=== PATIENT | male | born 1965 | race Two or more races ===

== ENCOUNTER 2022-04-30 17:54 | Emergency (ER) | payer MEDICAID, OTHER ==
[~2022-04-30] VITALS: Ht 180.3 cm; Wt 210.0 kg
[2022-04-30 18:13] VITALS: BP 95/72
[2022-04-30 19:58] LABS: Albumin 3.2 g/dL (3.4-5.0); Calcium 8.5 mg/dL (8.5-10.1); Potassium 4.7 mmol/L (3.5-5.1)
[2022-04-30 20:01] LABS: BUN/Creatinine Ratio 24.4; Bilirubin, Total 1.1 mg/dL (0.2-1.0); Total Protein 6.4 g/dL (6.4-8.2)
[2022-04-30 20:03] LABS: Basophils # (auto) 0.1 10 ^3/uL (0-0.2); Basophils % (auto) 0.7 % (0.0-2.0); Eosinophils # (auto) 0.2 10 ^3/uL (0-0.8); Hemoglobin 16.9 g/dL (13.5-17.5); Mean Corpuscular Hemoglobin 27.1 pg (28.0-32.0); Monocytes # (auto) 1.1 10 ^3/uL (0-1.3); Red Cell Distribution Width 15.2 % (11.8-14.3)
[2022-04-30 20:04] LABS: Eosinophils % (auto) 1.9 % (0.0-7.0); Hematocrit 52.7 % (41.0-53.0); Lymphocytes # (auto) 2.5 10 ^3/uL (0.4-5.4); Lymphocytes % (auto) 22.3 % (10.0-50.0); Mean Corpuscular Volume 84.7 fL (80.0-100.0); Monocytes % (auto) 9.9 % (0.0-12.0); Neutrophils # (auto) 7.3 10 ^3/uL (1.6-8.6); Neutrophils % (auto) 65.2 % (37.0-80.0); Nucleated Red Blood Cells % 0.1 %; Red Blood Cells 6.22 10^6/uL (4.5-5.90); White Blood Cell 11.2 10^3/uL (4.4-10.8)
== END 2022-05-01 00:14 | disposition home or self-care (01) ==
LOC: ER 17:54
DX: I11.0 Hypertensive heart disease with heart failure (principal); I50.9 Heart failure, unspecified; F15.10 Other stimulant abuse, uncomplicated
CPT/HCPCS: 36415; 71045; 80053; 83880; 84484; 85025; 93005

== ENCOUNTER 2022-05-02 10:07 | Emergency (ER) | payer MEDICAID ==
[~2022-05-02] VITALS: Ht 172.7 cm; Wt 87.2 kg
[2022-05-02 10:15] VITALS: BP 125/96
[2022-05-02 11:19] LABS: Basophils # (auto) 0.1 10 ^3/uL (0-0.2); Mean Corpuscular Hemoglobin 27.5 pg (28.0-32.0)
[2022-05-02 11:23] LABS: Eosinophils # (auto) 0.2 10 ^3/uL (0-0.8); Eosinophils % (auto) 1.7 % (0.0-7.0); Hematocrit 53.3 % (41.0-53.0); Hemoglobin 17.1 g/dL (13.5-17.5); Lymphocytes % (auto) 20.4 % (10.0-50.0); Mean Corpuscular Hgb Conc. 32.2 g/dL (32.0-36.0); Mean Corpuscular Volume 85.5 fL (80.0-100.0); Monocytes # (auto) 0.9 10 ^3/uL (0-1.3); Monocytes % (auto) 9.3 % (0.0-12.0); Neutrophils # (auto) 6.7 10 ^3/uL (1.6-8.6); Neutrophils % (auto) 67.6 % (37.0-80.0); Nucleated Red Blood Cells % 0.1 %; Red Blood Cells 6.23 10^6/uL (4.5-5.90); Red Cell Distribution Width 15.5 % (11.8-14.3); White Blood Cell 9.8 10^3/uL (4.4-10.8)
[2022-05-02 11:33] LABS: Albumin 3.2 g/dL (3.4-5.0); Calcium 9.1 mg/dL (8.5-10.1); Potassium 4.8 mmol/L (3.5-5.1)
[2022-05-02 11:36] LABS: BUN/Creatinine Ratio 25.5; Total Protein 6.6 g/dL (6.4-8.2)
[2022-05-02] MEDS ORDERED: FUROSEMIDE 40 MG/4 ML VIAL IV ONE (12:45)
== END 2022-05-02 20:43 | disposition left against medical advice (07) ==
LOC: EDBD 10:07 → ER 10:07
DX: I11.0 Hypertensive heart disease with heart failure (principal); I50.9 Heart failure, unspecified; F12.10 Cannabis abuse, uncomplicated; F15.10 Other stimulant abuse, uncomplicated; E78.5 Hyperlipidemia, unspecified
CPT/HCPCS: 36415; 71045; 80053; 83880; 84484; 85025; 93005

== ENCOUNTER 2022-06-01 19:33 | Inpatient (IN) | payer MEDICAID ==
[~2022-06-01] VITALS: Ht 180.3 cm; Wt 95.6 kg
[2022-06-01 20:26] LABS: Basophils # (auto) 0.1 10 ^3/uL (0-0.2); Basophils % (auto) 0.8 % (0.0-2.0); Eosinophils # (auto) 0.1 10 ^3/uL (0-0.8); Eosinophils % (auto) 1.3 % (0.0-7.0); Hematocrit 46.8 % (41.0-53.0); Hemoglobin 15.7 g/dL (13.5-17.5); Lymphocytes % (auto) 20.6 % (10.0-50.0); Mean Corpuscular Hemoglobin 28.3 pg (28.0-32.0); Mean Corpuscular Hgb Conc. 33.5 g/dL (32.0-36.0); Mean Corpuscular Volume 84.6 fL (80.0-100.0); Monocytes # (auto) 1.1 10 ^3/uL (0-1.3); Monocytes % (auto) 11.4 % (0.0-12.0); Neutrophils # (auto) 6.5 10 ^3/uL (1.6-8.6); Neutrophils % (auto) 65.9 % (37.0-80.0); Nucleated Red Blood Cells % 0.1 %; Red Blood Cells 5.54 10^6/uL (4.5-5.90); White Blood Cell 9.9 10^3/uL (4.4-10.8)
[2022-06-01 20:42] LABS: Albumin 3.1 g/dL (3.4-5.0); Calcium 8.5 mg/dL (8.5-10.1); Potassium 4.3 mmol/L (3.5-5.1)
[2022-06-01 20:45] LABS: BUN/Creatinine Ratio 26.1; Bilirubin, Total 1.8 mg/dL (0.2-1.0); Total Protein 6.3 g/dL (6.4-8.2)
[2022-06-01] MEDS ORDERED: FUROSEMIDE 100 MG/10ML VIAL IV ONE (20:45)
[2022-06-01 23:22] LABS: Alcohol, Urine < 3.0 mg/dL (0-10); Cannabinoid Screen, Urine POSITIVE (NEGATIVE)
[2022-06-01 23:30] LABS: Amphetamine Screen, Urine POSITIVE (NEGATIVE); Barbiturate Scree,Urine NEGATIVE (NEGATIVE); Benzodiazephine Screen, Urine NEGATIVE (NEGATIVE); Cocaine Screen, Urine NEGATIVE (NEGATIVE); Opiate Scree,Urine NEGATIVE (NEGATIVE); Phencyclidine Screen, Urine NEGATIVE (NEGATIVE)
[2022-06-02] MEDS ORDERED: DOCUSATE SOD 100 MG CAP PO PRN (02:30)
[2022-06-02] MEDS ORDERED: MORPHINE SULFATE INJ 2 MG/ml SYRG IV PRN ×2 (02:30→03:00)
[2022-06-02] MEDS ORDERED: IBUPROFEN 600 MG TAB PO PRN (02:30)
[2022-06-02] MEDS ORDERED: HYDROcodone-ACET 5/325MG TAB PO PRN (02:30)
[2022-06-02] MEDS ORDERED: NITROGLYCERIN 0.4 MG SL TAB SL PRN (03:00)
[2022-06-02 03:25] LABS: BUN/Creatinine Ratio 27.2; Calcium 8.3 mg/dL (8.5-10.1); Magnesium 1.8 mg/dL (1.6-2.6); Potassium 3.3 mmol/L (3.5-5.1)
[2022-06-02 03:26] LABS: Bilirubin, Total 2.5 mg/dL (0.2-1.0); Total Protein 6.4 g/dL (6.4-8.2)
[2022-06-02 03:29] LABS: Basophils # (auto) 0.2 10 ^3/uL (0-0.2); Eosinophils # (auto) 0.2 10 ^3/uL (0-0.8); Eosinophils % (auto) 2.1 % (0.0-7.0); Hematocrit 49.4 % (41.0-53.0); Lymphocytes # (auto) 1.8 10 ^3/uL (0.4-5.4); Lymphocytes % (auto) 18.9 % (10.0-50.0); Mean Corpuscular Hemoglobin 26.9 pg (28.0-32.0); Mean Corpuscular Hgb Conc. 32.3 g/dL (32.0-36.0); Mean Corpuscular Volume 83.3 fL (80.0-100.0); Monocytes # (auto) 1.2 10 ^3/uL (0-1.3); Monocytes % (auto) 12.5 % (0.0-12.0); Neutrophils # (auto) 6.1 10 ^3/uL (1.6-8.6); Neutrophils % (auto) 64.5 % (37.0-80.0); Nucleated Red Blood Cells % 0.1 %; Red Blood Cells 5.93 10^6/uL (4.5-5.90); Red Cell Distribution Width 14.7 % (11.8-14.3); White Blood Cell 9.5 10^3/uL (4.4-10.8)
[2022-06-02] MEDS: SODIUM CHLOR 0.9% PF (SALINE LOCK) 10ML VIAL/SYR IV SCH ×3 (06:03→22:00)
[2022-06-02] MEDS ORDERED: FUROSEMIDE 40 MG/4 ML VIAL IV SCH (10:00)
[2022-06-02] MEDS: CARVEDILOL 12.5 MG TAB PO SCH ×3 (10:00→22:23)
[2022-06-02] MEDS: FAMOTIDINE (10MG/ML) 2ML VL IV SCH (11:59)
[2022-06-02 15:19] LABS: Magnesium 2.1 mg/dL (1.6-2.6); Phosphorus 3.7 mg/dL (2.5-4.90)
[2022-06-02] MEDS ORDERED: IOHEXOL 350 MG/ML 100ML IJ ONE (15:57)
[2022-06-02] MEDS ORDERED: ENOXAPARIN SOD 100 MG/1 ML SYRINGE SC ONE (17:15)
[2022-06-02] MEDS ORDERED: AMIODARONE HCL 150 MG in D5W 5% 100 ML IV ONE (17:15)
[2022-06-02] MEDS ORDERED: POTASSIUM CHL 20 Meq TABLET PO ONE (17:15)
[2022-06-02] MEDS ORDERED: AMIODARONE 450mg/250ml AE 250 ML IV SCH ×2 (17:30→23:30)
[2022-06-02] MEDS: MILRINONE 20MG/100ML 100 ML IV SCH (17:51)
[2022-06-02 20:54] LABS: Basophils # (auto) 0.1 10 ^3/uL (0-0.2); Basophils % (auto) 0.9 % (0.0-2.0); Eosinophils # (auto) 0.1 10 ^3/uL (0-0.8); Eosinophils % (auto) 0.5 % (0.0-7.0); Hematocrit 50.2 % (41.0-53.0); Hemoglobin 16.1 g/dL (13.5-17.5); Lymphocytes # (auto) 1.6 10 ^3/uL (0.4-5.4); Lymphocytes % (auto) 13.5 % (10.0-50.0); Mean Corpuscular Hemoglobin 27.3 pg (28.0-32.0); Mean Corpuscular Hgb Conc. 32.2 g/dL (32.0-36.0); Mean Corpuscular Volume 84.8 fL (80.0-100.0); Monocytes % (auto) 8.6 % (0.0-12.0); Neutrophils # (auto) 8.9 10 ^3/uL (1.6-8.6); Neutrophils % (auto) 76.5 % (37.0-80.0); Nucleated Red Blood Cells % 0.2 %; Red Blood Cells 5.92 10^6/uL (4.5-5.90); Red Cell Distribution Width 14.9 % (11.8-14.3); White Blood Cell 11.7 10^3/uL (4.4-10.8)
[2022-06-02 21:18] LABS: Albumin 2.9 g/dL (3.4-5.0); Calcium 8.5 mg/dL (8.5-10.1); Potassium 4.3 mmol/L (3.5-5.1)
[2022-06-02 21:21] LABS: Bilirubin, Total 3.8 mg/dL (0.2-1.0); Total Protein 6.3 g/dL (6.4-8.2)
[2022-06-02] MEDS: FUROSEMIDE 20 MG/2 ML VIAL IV SCH (21:36)
[2022-06-02] MEDS: SACUBITRIL-VALSARTAN 24mg/26mg TAB PO SCH (22:23)
[2022-06-02] MEDS: ENOXAPARIN SOD 100 MG/1 ML SYRINGE SC SCH (22:24)
[2022-06-02 22:43] VITALS: BP 120/77
[2022-06-03] VITALS (7 sets, daily range): BP systolic 87–108; BP diastolic 59–73
[2022-06-03] MEDS: ONDANSETRON HCL 4 MG/2 ML VIAL IV PRN (01:18)
[2022-06-03] MEDS: MILRINONE 20MG/100ML 100 ML IV SCH ×3 (03:07→20:48)
[2022-06-03] MEDS: AMIODARONE 450mg/250ml AE 250 ML IV SCH ×2 (03:35→18:57)
[2022-06-03] MEDS: FUROSEMIDE 20 MG/2 ML VIAL IV SCH ×2 (06:00→17:21)
[2022-06-03] MEDS: SODIUM CHLOR 0.9% PF (SALINE LOCK) 10ML VIAL/SYR IV SCH ×3 (06:05→22:29)
[2022-06-03 06:30] LABS: Basophils # (auto) 0.1 10 ^3/uL (0-0.2); Basophils % (auto) 0.5 % (0.0-2.0); Eosinophils # (auto) 0 10 ^3/uL (0-0.8); Eosinophils % (auto) 0.2 % (0.0-7.0); Hematocrit 46.3 % (41.0-53.0); Hemoglobin 15.1 g/dL (13.5-17.5); Lymphocytes # (auto) 1.8 10 ^3/uL (0.4-5.4); Lymphocytes % (auto) 13.5 % (10.0-50.0); Mean Corpuscular Hemoglobin 27.9 pg (28.0-32.0); Mean Corpuscular Hgb Conc. 32.6 g/dL (32.0-36.0); Mean Corpuscular Volume 85.6 fL (80.0-100.0); Monocytes # (auto) 1.4 10 ^3/uL (0-1.3); Monocytes % (auto) 10.9 % (0.0-12.0); Neutrophils # (auto) 9.9 10 ^3/uL (1.6-8.6); Neutrophils % (auto) 74.9 % (37.0-80.0); Nucleated Red Blood Cells % 0.1 %; Red Blood Cells 5.41 10^6/uL (4.5-5.90); Red Cell Distribution Width 15.1 % (11.8-14.3); White Blood Cell 13.2 10^3/uL (4.4-10.8)
[2022-06-03 08:23] LABS: BUN/Creatinine Ratio 22.2; Potassium 4.2 mmol/L (3.5-5.1)
[2022-06-03 08:24] LABS: Albumin 2.9 g/dL (3.4-5.0); Bilirubin, Total 3.9 mg/dL (0.2-1.0); Calcium 8.5 mg/dL (8.5-10.1); Total Protein 6.2 g/dL (6.4-8.2)
[2022-06-03] MEDS: SACUBITRIL-VALSARTAN 24mg/26mg TAB PO SCH ×2 (09:42→22:00)
[2022-06-03] MEDS: CARVEDILOL 12.5 MG TAB PO SCH (09:42)
[2022-06-03] MEDS: ENOXAPARIN SOD 100 MG/1 ML SYRINGE SC SCH ×2 (09:54→22:39)
[2022-06-03] MEDS: FAMOTIDINE (10MG/ML) 2ML VL IV SCH (09:54)
[2022-06-03] MEDS ORDERED: DIGOXIN (250MCG/ML) 2 ML AMPULE IV ONE (10:45)
[2022-06-03] MEDS ORDERED: DEXTROSE (50%) 50ML SYRG IV PRN (10:45)
[2022-06-03] MEDS: ACCU-CHEK COMFORT CURVE STRIP VI SCH ×3 (11:25→22:24)
[2022-06-03] MEDS: InsuLIN REG 1unit/0.01ml Soln (100units/ml) SC SCH ×3 (11:26→22:00)
[2022-06-03 15:49] LABS: Urine Bacteria NONE SEEN /hpf (None Seen); Urine Blood Negative /uL (Negative); Urine Specific Gravity 1.034 (1.001-1.035); Urine WBC <1 /hpf (0 - 3)
[2022-06-03 16:04] LABS: Alcohol, Urine < 3.0 mg/dL (0-10); Barbiturate Scree,Urine NEGATIVE (NEGATIVE); Benzodiazephine Screen, Urine NEGATIVE (NEGATIVE); Cannabinoid Screen, Urine POSITIVE (NEGATIVE); Cocaine Screen, Urine NEGATIVE (NEGATIVE); Opiate Scree,Urine NEGATIVE (NEGATIVE); Phencyclidine Screen, Urine NEGATIVE (NEGATIVE); Protein, Urine 23.7 mg/dL (0.0-11.9)
[2022-06-03 16:11] LABS: Amphetamine Screen, Urine POSITIVE (NEGATIVE)
[2022-06-04] MEDS: CARVEDILOL 3.125 MG TAB PO SCH ×3 (00:12→22:08)
[2022-06-04 05:00] VITALS: BP 104/62
[2022-06-04] MEDS: MILRINONE 20MG/100ML 100 ML IV SCH (06:16)
[2022-06-04] MEDS: ACCU-CHEK COMFORT CURVE STRIP VI SCH ×4 (06:16→22:10)
[2022-06-04] MEDS: SODIUM CHLOR 0.9% PF (SALINE LOCK) 10ML VIAL/SYR IV SCH ×3 (06:16→22:07)
[2022-06-04] MEDS: InsuLIN REG 1unit/0.01ml Soln (100units/ml) SC SCH ×4 (06:17→22:00)
[2022-06-04] MEDS: FUROSEMIDE 20 MG/2 ML VIAL IV SCH ×2 (06:28→17:14)
[2022-06-04 06:55] VITALS: BP 103/57
[2022-06-04 08:56] VITALS: BP 100/70
[2022-06-04] MEDS: FAMOTIDINE (10MG/ML) 2ML VL IV SCH (09:04)
[2022-06-04] MEDS: DIGOXIN 0.125 MG TAB PO SCH (09:34)
[2022-06-04] MEDS: SACUBITRIL-VALSARTAN 24mg/26mg TAB PO SCH ×2 (09:34→22:00)
[2022-06-04] MEDS: ENOXAPARIN SOD 100 MG/1 ML SYRINGE SC SCH (09:35)
[2022-06-04] MEDS: AMIODARONE HCL 200 MG TAB PO SCH ×2 (10:00→22:08)
[2022-06-04] MEDS: ONDANSETRON HCL 4 MG/2 ML VIAL IV PRN (10:19)
[2022-06-04 13:00] VITALS: BP 100/71
[2022-06-04 17:00] VITALS: BP 107/62
[2022-06-04] MEDS ORDERED: LORazepam 0.5 MG TAB PO PRN (18:15)
[2022-06-04 22:00] VITALS: BP 103/75
[2022-06-04] MEDS: APIXABAN 5 MG TAB PO SCH (22:08)
[2022-06-05 05:00] VITALS: BP 89/65
[2022-06-05 05:45] VITALS: BP 94/71
[2022-06-05] MEDS: SODIUM CHLOR 0.9% PF (SALINE LOCK) 10ML VIAL/SYR IV SCH ×2 (06:09→14:00)
[2022-06-05] MEDS: ACCU-CHEK COMFORT CURVE STRIP VI SCH ×2 (06:09→11:59)
[2022-06-05] MEDS: FUROSEMIDE 20 MG/2 ML VIAL IV SCH (06:09)
[2022-06-05] MEDS: InsuLIN REG 1unit/0.01ml Soln (100units/ml) SC SCH ×2 (06:09→11:30)
[2022-06-05 09:00] VITALS: BP 101/80
[2022-06-05] MEDS: CARVEDILOL 3.125 MG TAB PO SCH (10:00)
[2022-06-05] MEDS: SACUBITRIL-VALSARTAN 24mg/26mg TAB PO SCH (10:15)
[2022-06-05] MEDS: APIXABAN 5 MG TAB PO SCH (10:17)
[2022-06-05] MEDS: DIGOXIN 0.125 MG TAB PO SCH (10:17)
[2022-06-05] MEDS: FAMOTIDINE (10MG/ML) 2ML VL IV SCH (10:18)
[2022-06-05] MEDS: AMIODARONE HCL 200 MG TAB PO SCH (10:18)
[2022-06-05] MEDS ORDERED: AMIO200T33 PO (11:53)
[2022-06-05] MEDS ORDERED: DIGO0.12 PO (11:53)
[2022-06-05] MEDS ORDERED: SACU1TAB PO (11:53)
[2022-06-05] MEDS ORDERED: APIX5TAB PO (11:54)
[2022-06-05 13:00] VITALS: BP 94/74
[2022-06-05 13:01] VITALS: BP 101/80
== END 2022-06-05 14:45 | disposition home or self-care (01) | DRG 133 ==
LOC: ER 19:44 → TELE 06-02 02:56 → TELE-EAST 06-02 21:05
PROVIDERS: ADMIT Nurse Practitioner Family; ATTEND Family Medicine
DX: J96.01 Acute respiratory failure with hypoxia (principal); N17.0 Acute kidney failure with tubular necrosis; I50.23 Acute on chronic systolic (congestive) heart failure; I13.0 Hypertensive heart and chronic kidney disease with heart failure and stage 1 through stage 4 chronic kidney disease, or unspecified chronic kidney disease; F15.10 Other stimulant abuse, uncomplicated; E78.5 Hyperlipidemia, unspecified; F17.210 Nicotine dependence, cigarettes, uncomplicated; N18.9 Chronic kidney disease, unspecified; I48.92 Unspecified atrial flutter; I42.7 Cardiomyopathy due to drug and external agent; E66.9 Obesity, unspecified; E78.00 Pure hypercholesterolemia, unspecified; E87.6 Hypokalemia; F12.10 Cannabis abuse, uncomplicated; I48.91 Unspecified atrial fibrillation; Z20.822 Contact with and (suspected) exposure to COVID-19; Z79.01 Long term (current) use of anticoagulants; Z68.29 Body mass index [BMI] 29.0-29.9, adult
CPT/HCPCS: 36415; 36600; 71046; 71275; 76775; 78582; 80053; 80061; 80307; 81001; 82306; 82570; 82805; 82962; 83036; 83735; 83880; 83970; 84100; 84156; 84300; 84443; 84484; 85025; 85379; 93005; 93306; 93970; 96365; 96366; 96372; 96375; G0378; J2405; J3490; J7060

== ENCOUNTER 2022-07-17 21:43 | Inpatient (IN) | payer MEDICAID ==
[~2022-07-17] VITALS: Ht 180.3 cm; Wt 104.0 kg
[~2022-07-17 21:43] MED LIST: AMIO200T33 PO; APIX5TAB PO; DIGO0.12 PO; SACU1TAB PO
[2022-07-18 00:08] LABS: Red Cell Distribution Width 15.1 % (11.8-14.3)
[2022-07-18 00:09] LABS: Basophils # (auto) 0.1 10 ^3/uL (0-0.2); Basophils % (auto) 0.7 % (0.0-2.0); Eosinophils # (auto) 0.1 10 ^3/uL (0-0.8); Eosinophils % (auto) 0.9 % (0.0-7.0); Hematocrit 46.2 % (41.0-53.0); Hemoglobin 15.1 g/dL (13.5-17.5); Lymphocytes # (auto) 1.4 10 ^3/uL (0.4-5.4); Lymphocytes % (auto) 16.9 % (10.0-50.0); Mean Corpuscular Hemoglobin 27.1 pg (28.0-32.0); Mean Corpuscular Hgb Conc. 32.7 g/dL (32.0-36.0); Mean Corpuscular Volume 82.8 fL (80.0-100.0); Monocytes # (auto) 0.9 10 ^3/uL (0-1.3); Monocytes % (auto) 11.1 % (0.0-12.0); Neutrophils # (auto) 5.6 10 ^3/uL (1.6-8.6); Neutrophils % (auto) 70.4 % (37.0-80.0); Nucleated Red Blood Cells % 1.5 %; Red Blood Cells 5.57 10^6/uL (4.5-5.90)
[2022-07-18 00:35] LABS: BUN/Creatinine Ratio 11.5; Calcium 9.1 mg/dL (8.5-10.1); Magnesium 2.4 mg/dL (1.6-2.6); Potassium 3.8 mmol/L (3.5-5.1)
[2022-07-18 00:37] LABS: Bilirubin, Total 3.1 mg/dL (0.2-1.0); Total Protein 6.5 g/dL (6.4-8.2)
[2022-07-18] MEDS ORDERED: NITROGLYCERIN 0.4 MG SL TAB SL PRN (04:30)
[2022-07-18] MEDS ORDERED: ONDANSETRON HCL 4 MG/2 ML VIAL IV PRN (04:30)
[2022-07-18] MEDS ORDERED: ACETAMINOPHEN 325 MG TAB PO PRN (04:30)
[2022-07-18] MEDS ORDERED: FUROSEMIDE 40 MG/4 ML VIAL IV ONE (04:30)
[2022-07-18] MEDS ORDERED: MORPHINE SULFATE INJ 2 MG/ml SYRG IV PRN (04:30)
[2022-07-18] MEDS ORDERED: dilTIAZem 25 MG/5 ML VIAL IV ONE (05:15)
[2022-07-18 05:51] LABS: Urine Bacteria FEW /hpf (None Seen); Urine Blood Negative /uL (Negative); Urine Hyaline Cast FEW /lpf (0 - 2); Urine Specific Gravity 1.012 (1.001-1.035); Urine WBC 1 /hpf (0 - 3)
[2022-07-18] MEDS: AMIODARONE HCL 200 MG TAB PO SCH ×2 (08:13→22:10)
[2022-07-18] MEDS: APIXABAN 5 MG TAB PO SCH ×2 (08:13→22:10)
[2022-07-18] MEDS: SACUBITRIL-VALSARTAN 24mg/26mg TAB PO SCH (08:13)
[2022-07-18] MEDS: PANTOPRAZOLE 40 MG TAB PO SCH (08:14)
[2022-07-18] MEDS ORDERED: SPIRONOLACTONE 25 MG TAB PO ONE (09:00)
[2022-07-18] MEDS ORDERED: metOLazone 5 MG TAB PO ONE (09:00)
[2022-07-18] MEDS ORDERED: ENALAPRIL MALEATE 2.5 MG TAB PO SCH (10:00)
[2022-07-18] MEDS ORDERED: ASPirin 81 mg TAB PO SCH (10:00)
[2022-07-18] MEDS ORDERED: DIGOXIN 0.125 MG TAB PO SCH (10:00)
[2022-07-18] MEDS: FUROSEMIDE 40 MG/4 ML VIAL IV SCH ×2 (11:08→18:17)
[2022-07-18] MEDS: CARVEDILOL 3.125 MG TAB PO SCH ×2 (11:15→22:00)
[2022-07-18] MEDS ORDERED: FUROSEMIDE 20 MG/2 ML VIAL IV SCH (18:00)
[2022-07-18 21:27] VITALS: BP 93/71
[2022-07-18 21:28] VITALS: BP 93/78
[2022-07-18] MEDS ORDERED: FUR20T PO (21:41)
[2022-07-18] MEDS ORDERED: ENAL2.5T7 PO (21:41)
[2022-07-18 22:00] VITALS: BP 93/78
[2022-07-18] MEDS: ATORVASTATIN 20 MG TAB PO SCH (22:10)
[2022-07-19] VITALS (8 sets, daily range): BP systolic 82–103; BP diastolic 53–77
[2022-07-19] MEDS: FUROSEMIDE 40 MG/4 ML VIAL IV SCH ×2 (05:07→18:00)
[2022-07-19 05:37] LABS: Basophils # (auto) 0.1 10 ^3/uL (0-0.2); Basophils % (auto) 1.3 % (0.0-2.0); Eosinophils # (auto) 0.2 10 ^3/uL (0-0.8); Eosinophils % (auto) 2.4 % (0.0-7.0); Hematocrit 44.3 % (41.0-53.0); Hemoglobin 14.7 g/dL (13.5-17.5); Lymphocytes # (auto) 1.6 10 ^3/uL (0.4-5.4); Lymphocytes % (auto) 20.7 % (10.0-50.0); Mean Corpuscular Hemoglobin 26.8 pg (28.0-32.0); Mean Corpuscular Hgb Conc. 33.1 g/dL (32.0-36.0); Mean Corpuscular Volume 80.9 fL (80.0-100.0); Monocytes # (auto) 0.8 10 ^3/uL (0-1.3); Monocytes % (auto) 11.2 % (0.0-12.0); Neutrophils # (auto) 4.9 10 ^3/uL (1.6-8.6); Neutrophils % (auto) 64.4 % (37.0-80.0); Nucleated Red Blood Cells % 0.2 %; Red Blood Cells 5.47 10^6/uL (4.5-5.90); Red Cell Distribution Width 14.9 % (11.8-14.3); White Blood Cell 7.6 10^3/uL (4.4-10.8)
[2022-07-19 05:58] LABS: Albumin 2.6 g/dL (3.4-5.0); Calcium 8.7 mg/dL (8.5-10.1); Potassium 3.1 mmol/L (3.5-5.1)
[2022-07-19 06:02] LABS: BUN/Creatinine Ratio 14.5; Bilirubin, Total 3.6 mg/dL (0.2-1.0); Total Protein 5.8 g/dL (6.4-8.2)
[2022-07-19] MEDS: PANTOPRAZOLE 40 MG TAB PO SCH (09:22)
[2022-07-19] MEDS: CARVEDILOL 3.125 MG TAB PO SCH ×2 (09:22→21:34)
[2022-07-19] MEDS: APIXABAN 5 MG TAB PO SCH ×2 (09:22→21:34)
[2022-07-19] MEDS: AMIODARONE HCL 200 MG TAB PO SCH ×2 (09:22→21:33)
[2022-07-19] MEDS: SACUBITRIL-VALSARTAN 24mg/26mg TAB PO SCH (09:22)
[2022-07-19] MEDS: SPIRONOLACTONE 25 MG TAB PO SCH (09:23)
[2022-07-19] MEDS ORDERED: DAPAGLIFLOZIN 5 MG TAB PO SCH (10:00)
[2022-07-19] MEDS ORDERED: POTASSIUM EFFERVESENT TAB 25 MEQ GT ONE (11:45)
[2022-07-19] MEDS ORDERED: POTASSIUM CHL 20 Meq TABLET PO ONE (11:45)
[2022-07-19] MEDS ORDERED: metOLazone 5 MG TAB PO ONE (12:15)
[2022-07-19] MEDS: EMPAGLIFLOZIN 10 MG TAB PO SCH (14:44)
[2022-07-19] MEDS ORDERED: POTASSIUM EFFERVESENT TAB 25 MEQ PO ONE (14:45)
[2022-07-19] MEDS ORDERED: ALBUTEROL SULF 2.5 MG/0.5ML(0.5%) NEB SOLN NEB PRN (18:30)
[2022-07-19] MEDS ORDERED: IPRATROPIUM BROM 0.5 MG/2.5ML INH SOL NEB PRN (18:30)
[2022-07-19] MEDS ORDERED: ALBUMIN 5% 250 ML IV ONE (20:45)
[2022-07-19] MEDS ORDERED: MIDODRINE HCL 10 MG TAB PO ONE (21:00)
[2022-07-19] MEDS: ATORVASTATIN 20 MG TAB PO SCH (21:34)
[2022-07-19] MEDS: IPRATROPIUM BROM 0.5 MG/2.5ML INH SOL NEB SCH (21:36)
[2022-07-19] MEDS: ALBUTEROL SULF 2.5 MG/0.5ML(0.5%) NEB SOLN NEB SCH (21:36)
[2022-07-20] VITALS (8 sets, daily range): BP systolic 80–95; BP diastolic 49–65
[2022-07-20] MEDS: IPRATROPIUM BROM 0.5 MG/2.5ML INH SOL NEB SCH ×8 (02:44→22:00)
[2022-07-20] MEDS: ALBUTEROL SULF 2.5 MG/0.5ML(0.5%) NEB SOLN NEB SCH ×8 (02:44→22:00)
[2022-07-20] MEDS: FUROSEMIDE 40 MG/4 ML VIAL IV SCH (05:30)
[2022-07-20] MEDS ORDERED: MIDODRINE HCL 10 MG TAB PO SCH (06:00)
[2022-07-20] MEDS: EMPAGLIFLOZIN 10 MG TAB PO SCH (06:31)
[2022-07-20] MEDS: AMIODARONE HCL 200 MG TAB PO SCH ×2 (10:11→22:25)
[2022-07-20] MEDS: SPIRONOLACTONE 25 MG TAB PO SCH (10:12)
[2022-07-20] MEDS: PANTOPRAZOLE 40 MG TAB PO SCH (10:12)
[2022-07-20] MEDS: CARVEDILOL 3.125 MG TAB PO SCH ×2 (10:12→22:00)
[2022-07-20] MEDS: SACUBITRIL-VALSARTAN 24mg/26mg TAB PO SCH (10:13)
[2022-07-20] MEDS: APIXABAN 5 MG TAB PO SCH ×2 (10:13→22:25)
[2022-07-20] MEDS ORDERED: THROAT LOZENGES(CEPASTAT) MT PRN (19:30)
[2022-07-20] MEDS: ATORVASTATIN 20 MG TAB PO SCH (22:25)
[2022-07-21] VITALS (7 sets, daily range): BP systolic 82–105; BP diastolic 53–77
[2022-07-21] MEDS: ALBUTEROL SULF 2.5 MG/0.5ML(0.5%) NEB SOLN NEB SCH ×5 (02:00→18:28)
[2022-07-21] MEDS: IPRATROPIUM BROM 0.5 MG/2.5ML INH SOL NEB SCH ×5 (02:00→18:28)
[2022-07-21 06:07] LABS: Basophils # (auto) 0.1 10 ^3/uL (0-0.2); Eosinophils # (auto) 0.2 10 ^3/uL (0-0.8); Hemoglobin 14.9 g/dL (13.5-17.5); Monocytes # (auto) 1.2 10 ^3/uL (0-1.3); Monocytes % (auto) 12.8 % (0.0-12.0); Neutrophils # (auto) 5.7 10 ^3/uL (1.6-8.6)
[2022-07-21] MEDS: EMPAGLIFLOZIN 10 MG TAB PO SCH (06:08)
[2022-07-21 06:10] LABS: Basophils % (auto) 1.1 % (0.0-2.0); Eosinophils % (auto) 2.5 % (0.0-7.0); Hematocrit 45.1 % (41.0-53.0); Lymphocytes # (auto) 1.8 10 ^3/uL (0.4-5.4); Lymphocytes % (auto) 20.4 % (10.0-50.0); Mean Corpuscular Hgb Conc. 33.2 g/dL (32.0-36.0); Mean Corpuscular Volume 81.4 fL (80.0-100.0); Neutrophils % (auto) 63.2 % (37.0-80.0); Nucleated Red Blood Cells % 0.2 %; Red Blood Cells 5.54 10^6/uL (4.5-5.90); Red Cell Distribution Width 14.8 % (11.8-14.3); White Blood Cell 9.1 10^3/uL (4.4-10.8)
[2022-07-21 06:36] LABS: Albumin 2.7 g/dL (3.4-5.0); BUN/Creatinine Ratio 16.5; Bilirubin, Total 2.6 mg/dL (0.2-1.0); Total Protein 6.6 g/dL (6.4-8.2)
[2022-07-21 07:34] LABS: Potassium 2.6 mmol/L (3.5-5.1)
[2022-07-21] MEDS: PANTOPRAZOLE 40 MG TAB PO SCH (09:58)
[2022-07-21] MEDS: APIXABAN 5 MG TAB PO SCH ×2 (09:58→22:14)
[2022-07-21] MEDS: AMIODARONE HCL 200 MG TAB PO SCH ×2 (09:59→22:13)
[2022-07-21] MEDS ORDERED: SPIRONOLACTONE 25 MG TAB PO SCH (10:00)
[2022-07-21] MEDS: POTASSIUM EFFERVESENT TAB 25 MEQ PO SCH ×2 (10:00→13:40)
[2022-07-21] MEDS: CARVEDILOL 3.125 MG TAB PO SCH ×2 (10:00→22:00)
[2022-07-21] MEDS ORDERED: SACUBITRIL-VALSARTAN 24mg/26mg TAB PO SCH (10:00)
[2022-07-21] MEDS ORDERED: MIDODRINE HCL 10 MG TAB PO ONE (10:30)
[2022-07-21] MEDS ORDERED: SODIUM CHLORIDE 0.9% 250 ML IV ONE (10:30)
[2022-07-21] MEDS: MIDODRINE HCL 10 MG TAB PO SCH (17:57)
[2022-07-21] MEDS ORDERED: POTASSIUM CHL 20MEQ/100ML 100 ML IV SCH (19:00)
[2022-07-21] MEDS: ATORVASTATIN 20 MG TAB PO SCH (22:14)
[2022-07-22 05:11] LABS: Basophils # (auto) 0.1 10 ^3/uL (0-0.2); Eosinophils # (auto) 0.2 10 ^3/uL (0-0.8); Lymphocytes % (auto) 24.5 % (10.0-50.0)
[2022-07-22 05:14] LABS: Basophils % (auto) 0.8 % (0.0-2.0); Eosinophils % (auto) 2.7 % (0.0-7.0); Hematocrit 45.8 % (41.0-53.0); Hemoglobin 15.2 g/dL (13.5-17.5); Mean Corpuscular Hemoglobin 26.8 pg (28.0-32.0); Mean Corpuscular Hgb Conc. 33.1 g/dL (32.0-36.0); Monocytes % (auto) 11.9 % (0.0-12.0); Neutrophils # (auto) 4.8 10 ^3/uL (1.6-8.6); Neutrophils % (auto) 60.1 % (37.0-80.0); Nucleated Red Blood Cells % 0.2 %; Red Blood Cells 5.65 10^6/uL (4.5-5.90); White Blood Cell 8.1 10^3/uL (4.4-10.8)
[2022-07-22] MEDS: MIDODRINE HCL 10 MG TAB PO SCH ×3 (05:38→18:11)
[2022-07-22 05:40] VITALS: BP 91/67
[2022-07-22 05:43] LABS: Potassium 3.4 mmol/L (3.5-5.1)
[2022-07-22 05:46] LABS: Albumin 2.8 g/dL (3.4-5.0); BUN/Creatinine Ratio 18.9; Calcium 8.7 mg/dL (8.5-10.1)
[2022-07-22 05:50] LABS: Bilirubin, Total 2.7 mg/dL (0.2-1.0); Total Protein 6.5 g/dL (6.4-8.2)
[2022-07-22 08:00] VITALS: BP 88/61
[2022-07-22 09:00] VITALS: BP 88/61
[2022-07-22] MEDS: CARVEDILOL 3.125 MG TAB PO SCH ×2 (10:00→22:00)
[2022-07-22] MEDS: PANTOPRAZOLE 40 MG TAB PO SCH (10:13)
[2022-07-22] MEDS: APIXABAN 5 MG TAB PO SCH ×2 (10:13→22:16)
[2022-07-22] MEDS: AMIODARONE HCL 200 MG TAB PO SCH ×2 (10:13→22:16)
[2022-07-22] MEDS ORDERED: POTASSIUM EFFERVESENT TAB 25 MEQ PO ONE (11:30)
[2022-07-22] MEDS ORDERED: DIGOXIN (250MCG/ML) 2 ML AMPULE IV ONE (11:30)
[2022-07-22] MEDS ORDERED: DIGOXIN 0.125 MG TAB PO ONE (11:30)
[2022-07-22 13:00] VITALS: BP 96/71
[2022-07-22 17:00] VITALS: BP 93/69
[2022-07-22 22:00] VITALS: BP 88/60
[2022-07-22] MEDS: ATORVASTATIN 20 MG TAB PO SCH (22:16)
[2022-07-23 05:00] VITALS: BP 101/73
[2022-07-23] MEDS: MIDODRINE HCL 10 MG TAB PO SCH ×3 (05:31→17:17)
[2022-07-23 05:34] LABS: Basophils # (auto) 0.1 10 ^3/uL (0-0.2); Eosinophils # (auto) 0.2 10 ^3/uL (0-0.8); Monocytes # (auto) 1.1 10 ^3/uL (0-1.3); White Blood Cell 7.6 10^3/uL (4.4-10.8)
[2022-07-23 05:38] LABS: Basophils % (auto) 1.1 % (0.0-2.0); Eosinophils % (auto) 2.6 % (0.0-7.0); Hematocrit 43.2 % (41.0-53.0); Hemoglobin 14.3 g/dL (13.5-17.5); Lymphocytes # (auto) 1.8 10 ^3/uL (0.4-5.4); Lymphocytes % (auto) 23.6 % (10.0-50.0); Mean Corpuscular Volume 81.6 fL (80.0-100.0); Monocytes % (auto) 14.1 % (0.0-12.0); Neutrophils # (auto) 4.5 10 ^3/uL (1.6-8.6); Neutrophils % (auto) 58.6 % (37.0-80.0); Nucleated Red Blood Cells % 0.1 %; Red Blood Cells 5.29 10^6/uL (4.5-5.90); Red Cell Distribution Width 15.1 % (11.8-14.3)
[2022-07-23 05:49] LABS: Potassium 3.3 mmol/L (3.5-5.1)
[2022-07-23 05:58] LABS: Albumin 2.6 g/dL (3.4-5.0); BUN/Creatinine Ratio 22.2; Bilirubin, Total 2.3 mg/dL (0.2-1.0); Calcium 8.7 mg/dL (8.5-10.1); Total Protein 6.3 g/dL (6.4-8.2)
[2022-07-23 08:00] VITALS: BP 105/75
[2022-07-23 09:00] VITALS: BP 103/80
[2022-07-23] MEDS: CARVEDILOL 3.125 MG TAB PO SCH ×2 (10:00→22:00)
[2022-07-23] MEDS: PANTOPRAZOLE 40 MG TAB PO SCH (10:10)
[2022-07-23] MEDS: DIGOXIN 0.125 MG TAB PO SCH (10:10)
[2022-07-23] MEDS: AMIODARONE HCL 200 MG TAB PO SCH ×2 (10:10→22:03)
[2022-07-23] MEDS: APIXABAN 5 MG TAB PO SCH ×2 (10:10→22:03)
[2022-07-23 13:00] VITALS: BP 105/75
[2022-07-23] MEDS ORDERED: POTASSIUM CHL 20 Meq TABLET PO ONE (13:00)
[2022-07-23 16:44] VITALS: BP 93/69
[2022-07-23 22:00] VITALS: BP 105/75
[2022-07-23] MEDS: ATORVASTATIN 20 MG TAB PO SCH (22:03)
[2022-07-24 05:00] VITALS: BP 120/73
[2022-07-24 05:29] LABS: Basophils # (auto) 0.1 10 ^3/uL (0-0.2); Eosinophils # (auto) 0.2 10 ^3/uL (0-0.8); Eosinophils % (auto) 2.8 % (0.0-7.0); Hematocrit 44.6 % (41.0-53.0); Monocytes # (auto) 1.1 10 ^3/uL (0-1.3); Red Blood Cells 5.48 10^6/uL (4.5-5.90); White Blood Cell 7.3 10^3/uL (4.4-10.8)
[2022-07-24 05:31] LABS: Hemoglobin 14.7 g/dL (13.5-17.5); Lymphocytes # (auto) 1.4 10 ^3/uL (0.4-5.4); Lymphocytes % (auto) 19.6 % (10.0-50.0); Mean Corpuscular Hemoglobin 26.8 pg (28.0-32.0); Mean Corpuscular Hgb Conc. 32.9 g/dL (32.0-36.0); Mean Corpuscular Volume 81.5 fL (80.0-100.0); Monocytes % (auto) 15.2 % (0.0-12.0); Neutrophils # (auto) 4.5 10 ^3/uL (1.6-8.6); Neutrophils % (auto) 61.4 % (37.0-80.0); Nucleated Red Blood Cells % 0.2 %; Red Cell Distribution Width 15.4 % (11.8-14.3)
[2022-07-24] MEDS: MIDODRINE HCL 10 MG TAB PO SCH ×2 (05:38→11:35)
[2022-07-24 05:53] LABS: Albumin 2.9 g/dL (3.4-5.0); BUN/Creatinine Ratio 22.9; Bilirubin, Total 2.4 mg/dL (0.2-1.0); Calcium 8.7 mg/dL (8.5-10.1); Potassium 3.3 mmol/L (3.5-5.1); Total Protein 6.2 g/dL (6.4-8.2)
[2022-07-24 08:00] VITALS: BP 103/74
[2022-07-24 09:00] VITALS: BP 103/74
[2022-07-24] MEDS: PANTOPRAZOLE 40 MG TAB PO SCH (09:18)
[2022-07-24] MEDS: AMIODARONE HCL 200 MG TAB PO SCH (09:18)
[2022-07-24] MEDS: APIXABAN 5 MG TAB PO SCH (09:18)
[2022-07-24] MEDS: DIGOXIN 0.125 MG TAB PO SCH (09:18)
[2022-07-24] MEDS: CARVEDILOL 3.125 MG TAB PO SCH (09:19)
[2022-07-24] MEDS ORDERED: BUMETANIDE 1 MG TAB PO SCH (10:00)
[2022-07-24] MEDS ORDERED: CAR3125T PO (12:15)
[2022-07-24] MEDS ORDERED: DIGO1TAB48 PO (12:15)
[2022-07-24] MEDS ORDERED: BUME1TAB3 PO (12:15)
[2022-07-24] MEDS ORDERED: BUME2TAB5 PO (12:24)
[2022-07-24 12:39] VITALS: BP 103/79
[2022-07-24 13:00] VITALS: BP 103/79
[2022-08-20] MEDS ORDERED: POTASSIUM EFFERVESENT TAB 25 MEQ PO SCH (10:00)
== END 2022-07-24 13:37 | disposition home or self-care (01) | DRG 133 ==
LOC: ER 21:46 → TELE 07-18 04:20 → TELE-CENTR 07-18 20:55
PROVIDERS: ADMIT Nurse Practitioner; ATTEND Student in an Organized Health Care Education/Training Program
DX: J96.01 Acute respiratory failure with hypoxia (principal); I50.23 Acute on chronic systolic (congestive) heart failure; N17.9 Acute kidney failure, unspecified; I27.29 Other secondary pulmonary hypertension; I95.9 Hypotension, unspecified; I11.0 Hypertensive heart disease with heart failure; J44.9 Chronic obstructive pulmonary disease, unspecified; I50.82 Biventricular heart failure; E78.5 Hyperlipidemia, unspecified; E87.6 Hypokalemia; T50.2X5A Adverse effect of carbonic-anhydrase inhibitors, benzothiadiazides and other diuretics, initial encounter; I48.0 Paroxysmal atrial fibrillation; R00.0 Tachycardia, unspecified; Z20.822 Contact with and (suspected) exposure to COVID-19; Y92.89 Other specified places as the place of occurrence of the external cause
CPT/HCPCS: 36415; 36600; 71045; 76705; 80053; 80162; 81001; 82805; 83735; 83880; 84132; 84484; 85025; 87426; 93005; 94640; 96374; 96375; 96376; G0378

== ENCOUNTER 2022-07-27 21:16 | Emergency (ER) | payer MEDICAID ==
[~2022-07-27] VITALS: Ht 177.8 cm; Wt 96.0 kg
[~2022-07-27 21:16] MED LIST changes: +BUME2TAB5 PO; +CAR3125T PO; +DIGO1TAB48 PO; -SACU1TAB PO
[2022-07-27 22:10] VITALS: BP 92/68
[2022-07-27 23:01] LABS: Basophils # (auto) 0.1 10 ^3/uL (0-0.2); Basophils % (auto) 1.1 % (0.0-2.0); Eosinophils # (auto) 0.2 10 ^3/uL (0-0.8); Lymphocytes # (auto) 1.2 10 ^3/uL (0.4-5.4); Lymphocytes % (auto) 12.6 % (10.0-50.0); Monocytes # (auto) 1.3 10 ^3/uL (0-1.3); Nucleated Red Blood Cells % 0.1 %
[2022-07-27 23:03] LABS: Eosinophils % (auto) 2.5 % (0.0-7.0); Hematocrit 41.5 % (41.0-53.0); Hemoglobin 13.4 g/dL (13.5-17.5); Mean Corpuscular Hemoglobin 26.3 pg (28.0-32.0); Mean Corpuscular Hgb Conc. 32.4 g/dL (32.0-36.0); Monocytes % (auto) 13.8 % (0.0-12.0); Neutrophils # (auto) 6.6 10 ^3/uL (1.6-8.6); Red Blood Cells 5.12 10^6/uL (4.5-5.90); Red Cell Distribution Width 15.1 % (11.8-14.3); White Blood Cell 9.4 10^3/uL (4.4-10.8)
[2022-07-27 23:22] LABS: BUN/Creatinine Ratio 23.3; Calcium 8.5 mg/dL (8.5-10.1); Magnesium 1.8 mg/dL (1.6-2.6); Potassium 3.1 mmol/L (3.5-5.1)
[2022-07-27 23:24] LABS: Bilirubin, Total 2.3 mg/dL (0.2-1.0); Total Protein 6.6 g/dL (6.4-8.2)
== END 2022-07-27 22:53 | disposition left against medical advice (07) ==
LOC: ER 21:20
DX: I95.9 Hypotension, unspecified (principal); R53.1 Weakness; N28.9 Disorder of kidney and ureter, unspecified; F17.210 Nicotine dependence, cigarettes, uncomplicated; F12.90 Cannabis use, unspecified, uncomplicated; I50.9 Heart failure, unspecified; I11.0 Hypertensive heart disease with heart failure
CPT/HCPCS: 36415; 80053; 83605; 83735; 83880; 84484; 85025; 93005

== ENCOUNTER 2022-10-21 07:37 | Emergency (ER) | payer MEDICAID ==
[~2022-10-21] VITALS: Ht 177.8 cm; Wt 110.0 kg
[2022-10-21 08:21] VITALS: BP 100/68
[2022-10-21] MEDS ORDERED: methylPREDNISolone SOD SUCC 125 MG/2 ML VL IM ONE (09:00)
[2022-10-21] MEDS ORDERED: diphenhdrAMINE HCL 50 MG/1 ML VL IM ONE (09:00)
[2022-10-21] MEDS ORDERED: CLIN300C8 PO (09:01)
[2022-10-21] MEDS ORDERED: HYDR50CA PO (09:02)
[2022-10-21] MEDS ORDERED: METH4PAK PO (09:02)
[2022-10-21] MEDS ORDERED: PER60TP TOP (09:02)
== END 2022-10-21 09:29 | disposition home or self-care (01) ==
LOC: ER 07:37
DX: L23.9 Allergic contact dermatitis, unspecified cause (principal); B86 Scabies; K02.9 Dental caries, unspecified; I11.0 Hypertensive heart disease with heart failure; I50.9 Heart failure, unspecified; E78.5 Hyperlipidemia, unspecified; F17.210 Nicotine dependence, cigarettes, uncomplicated; Z79.899 Other long term (current) drug therapy; Z79.2 Long term (current) use of antibiotics
CPT/HCPCS: 96372; 99284; J1200; J2930